=== PATIENT | male | born 1955 | race Caucasian/White ===

== ENCOUNTER 2020-08-27 17:45 | Emergency (ER) | payer OTHER ==
[~2020-08-27] VITALS: Ht 185.4 cm; Wt 79.4 kg
[2020-08-27 18:16] LABS: ABSOLUTE NEUTROPHILS 12.5 thou/uL (1.4-8.2); BASOPHILS 0.6 % (0.0-2.0); HEMATOCRIT 45.6 % (42.0-52.0); HEMOGLOBIN 14.9 gm/dL (14.0-18.0); LYMPHOCYTES 7.1 % (24.0-44.0); MCH 24.3 pg (26.0-34.0); MCHC 32.7 g/dL (28.0-37.0); MCV 74.2 fL (80.0-100.0); PLATELET COUNT 323 thou/uL (150-400); POLYS 82.3 % (36.0-66.0); RBC 6.14 mil/uL (4.50-6.00); WBC 15.2 thou/uL (4.0-11.0)
[2020-08-27 18:26] LABS: ANION GAP 4 mmol/L (7-16); BUN 12 mg/dL (7-18); CHLORIDE 95 mmol/L (98-107); CO2 39 mmol/L (21-32); CREATININE 1.1 mg/dL (0.7-1.3); GLUCOSE 145 mg/dL (74-106); POTASSIUM 3.2 mmol/L (3.5-5.1); SODIUM 138 mmol/L (136-145)
[2020-08-27 18:37] LABS: ALBUMIN 3.4 g/dL (3.4-5.0); LIPASE 232 U/L (73-393); SGOT 46 U/L (15-37); SGPT 65 U/L (16-63); TOTAL BILIRUBIN 0.2 mg/dL (0.2-1.0); TOTAL PROTEIN 8.6 g/dL (6.4-8.2); TROPONIN-I <0.06 ng/mL (<0.06)
[2020-08-27] MEDS ORDERED: DILAUDID 4 MG TA4 M1 PO (20:51)
[2020-08-27] MEDS ORDERED: ZOFRAN ODT4 MG PO (20:57)
[2020-08-27 21:08] VITALS: BP 130/80
--- NOTE | 2020-08-28 07:15 | EKG ---
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1955 Requested By: Raza An Order Number: [id number] MD: Josef Aguilar Measurements Intervals [place] Rate: 97 P: 31 NC: 139 QRS: 133 QRSD: 113 T: 39 QT: 430 QTc: 547 Interpretive Statements Sinus rhythm Borderline intraventricular conduction delay Probable right ventricular hypertrophy Prolonged QT interval Baseline wander in lead(s) V1,V2,V3,V4,V5 No previous ECG available for comparison Electronically Signed On 08-28-2020 7:15:37 CDT by Josef Aguilar [email or web address] <ELECTRONICALLY SIGNED> By: Josef Aguilar MD, [facility] 08/28/20 0715 33 183 Josef Aguilar MD, FAC /EPI
== END 2020-08-27 21:12 | disposition home or self-care (01) ==
LOC: ER 17:45 → EDBD 17:45 → ER 21:12
PROVIDERS: Emergency Medicine
DX: F11.23 Opioid dependence with withdrawal (principal); R91.1 Solitary pulmonary nodule; R11.10 Vomiting, unspecified; R10.30 Lower abdominal pain, unspecified

== ENCOUNTER → 2020-09-24 | Outpatient (CLI) | payer OTHER ==
[~2020-09-24] MED LIST: DILAUDID 4 MG TA4 M1 PO; ZOFRAN ODT4 MG PO
[2020-09-24 10:35] LABS: CREATININE 0.9 mg/dL (0.7-1.3)
== END ==
LOC: LAB 09:48 → CAT 12:27
PROVIDERS: ATTEND Internal Medicine
DX: S22.068A Other fracture of T7-T8 thoracic vertebra, initial encounter for closed fracture (principal); J43.2 Centrilobular emphysema; R91.8 Other nonspecific abnormal finding of lung field; X58.XXXA Exposure to other specified factors, initial encounter; Y93.89 Activity, other specified; Y92.89 Other specified places as the place of occurrence of the external cause; Y99.8 Other external cause status